=== PATIENT | female | born 1965 | race Caucasian/White ===

== ENCOUNTER 2022-08-05 14:58 | Emergency (ER) | payer BC ==
[2022-08-05] MEDS ORDERED: Sodium Chloride 0.9% 2.5 ML Syringe FLUSH PRN (15:34)
[2022-08-05] MEDS ORDERED: Sodium Chloride 0.9% 10 ML Syringe FLUSH PRN (15:34)
[2022-08-05] MEDS ORDERED: Ondansetron 4 MG/2 ML SDV IVPUSH ONE ×2 (15:36→17:36)
[2022-08-05] MEDS ORDERED: HYDROmorphone 2 MG/ML Syringe IVPUSH ONE ×2 (15:36→18:06)
[2022-08-05 16:22] LABS: CARBON DIOXIDE,CO2 28.6 mmol/L (21.0-32.0)
[2022-08-05] MEDS ORDERED: Lactated Ringers 1,000 ML IV ONE (16:32)
[2022-08-05] MEDS ORDERED: Iopamidol 755 MG/ML 500 ML Multipack Bottle IVPUSH ONE (18:12)
[2022-08-05] MEDS ORDERED: Lidocaine 2% Viscous Solution 100 ML Bottle PO STA (19:20)
[2022-08-05] MEDS ORDERED: Lidocaine 2% Viscous Solution 15 ML UD ONE (19:23)
[2022-08-05] MEDS ORDERED: Lidocaine 2% Viscous Solution 15 ML UD PO STA (19:25)
[2022-08-05 20:11] LABS: CORONAVIRUS COVID-19 NAA NEGATIVE (NEGATIVE); INFLUENZA A NAA NEGATIVE (NEGATIVE); INFLUENZA B NAA NEGATIVE (NEGATIVE)
[2022-08-05] MEDS ORDERED: HYDROmorphone 2 MG/ML Syringe IVPUSH STA (20:22)
== END 2022-08-05 21:00 ==
LOC: MW.ED 14:58
DX: K56.699 Other intestinal obstruction unspecified as to partial versus complete obstruction (principal); Z88.5 Allergy status to narcotic agent; Z79.899 Other long term (current) drug therapy; Z20.822 Contact with and (suspected) exposure to COVID-19
CPT/HCPCS: 0240U; 36415; 43752; 71045; 74177; 80053; 83690; 85025; 96361; 96374; 96375; 96376; 99285; A9270; J1170; J2405; J3490; J7120; Q9967

== ENCOUNTER 2024-08-14 08:42 | Day surgery (SDC) | payer BC ==
[2024-08-14] MEDS: Lactated Ringers 1,000 ML IV SCH (09:03)
[2024-08-14] MEDS ORDERED: propofoL 500 MG/50 ML 50 ML ONE (10:07)
== END 2024-08-14 11:19 | disposition home or self-care (01) ==
LOC: MW.SDS 08:42
PROVIDERS: ATTEND Surgery
DX: Z12.11 Encounter for screening for malignant neoplasm of colon (principal); K57.30 Diverticulosis of large intestine without perforation or abscess without bleeding; K64.8 Other hemorrhoids; Z80.0 Family history of malignant neoplasm of digestive organs; F41.9 Anxiety disorder, unspecified; Z79.899 Other long term (current) drug therapy; Z88.5 Allergy status to narcotic agent
CPT/HCPCS: 45378; J2704; J7120